=== PATIENT | male | born 1980 | race Two or more races ===

== ENCOUNTER 2023-09-07 10:54 | Inpatient (IN) | payer OTHER ==
[~2023-09-07] VITALS: Ht 167.6 cm; Wt 108.4 kg
[2023-09-07 11:49] LABS: BASOPHILS % (AUTO) 0.8 % (0.0-2.0); EOSINOPHILS % (AUTO) 0.5 % (0.0-6.0); HEMATOCRIT 43 % (39-51); LYMPHOCYTES # (AUTO) 1.7 K/uL (0.8-4.8); LYMPHOCYTES % (AUTO) 28.3 % (20.0-44.0); MEAN CORPUSCULAR HEMOGLOBIN 27 PG (26.0-33.0); MEAN CORPUSCULAR HGB CONC 32 g/dl (31.0-36.0); MEAN CORPUSCULAR VOLUME 84 fL (80-96); MONOCYTES # (AUTO) 0.4 K/uL (0.1-1.30); MONOCYTES % (AUTO) 5.7 % (2.0-12.0); NEUTROPHILS % (AUTO) 64.7 % (43.0-81.0); PLATELET COUNT (AUTO) 310 K/uL (150-450); RED BLOOD CELL COUNT(AUTO) 5.19 MIL/uL (4.5-6.0); RED CELL DISTRIBUTION WIDTH 17.4 % (11.5-15.0); WHITE BLOOD COUNT (AUTO) 6.1 K/uL (4.3-11.0)
[2023-09-07 11:51] LABS: APPEARANCE,URINE Clear (CLEAR); BILIRUBIN,URINE Negative (NEGATIVE); BLOOD, URINE Trace-intact Ery/uL (NEGATIVE); COLOR,URINE YELLOW (YELLOW); KETONES,URINE Negative (NEGATIVE); LEUKOCYTE ESTERASE ,URINE Negative (NEGATIVE); NITRITE, URINE Negative (NEGATIVE); PROTEIN,URINE 100 mg/dl (NEGATIVE); UGLUCOSE Negative (NEGATIVE); UROBILINOGEN,URINE 0.2 EU/dL (0.2)
[2023-09-07 11:57] LABS: CARBON DIOXIDE 23 mmol/L (21-32); CHLORIDE 103 mmol/L (98-107); CREATININE 0.9 mg/dL (0.6-1.3); GLUCOSE 106 mg/dL (74-106); POTASSIUM 3.6 mmol/L (3.5-5.1); SODIUM SERUM 138 mmol/L (136-145); UREA NITROGEN, BLOOD 4 mg/dL (7-18)
[2023-09-07 12:03] LABS: ACETAMINOPHEN <10 ug/ml (10-30); ALANINE AMINOTRANSFERASE 119 U/L (12-78); ALBUMIN 3.7 g/dL (3.4-5.0); ALCOHOL, BLOOD 246 mg/dL (0-10); ALKALINE PHOSPHATASE 181 U/L (46-116); ASPARTATE AMINOTRANSFERASE 71 U/L (15-37); BILIRUBIN,DIRECT 0.1 mg/dL (0.0-0.2); BILIRUBIN,TOTAL 0.4 mg/dL (0.2-1.0); CALCIUM, SERUM 8.2 mg/dL (8.5-10.1); SALICYLATE 0.5 mg/dL (2.8-20.0); TOTAL PROTEIN, SERUM 7.8 g/dL (6.4-8.2)
[2023-09-07 12:05] LABS: ADD URINE CULTURE NO; AMPHETAMINE, URINE NEGATIVE (NEGATIVE); BACTERIA,URINE Few /HPF (None Seen); BARBITURATE, URINE NEGATIVE (NEGATIVE); BENZODIAZEPINE, URINE NEGATIVE (NEGATIVE); CANNABINOID, URINE NEGATIVE (NEGATIVE); COCCAINE, URINE NEGATIVE (NEGATIVE); OPIATE, URINE NEGATIVE (NEGATIVE); PHENCYCLIDINE SCREEN,URINE NEGATIVE (NEGATIVE); RBC,URINE 0-2 /HPF (0-2); SQUAMOUS EPITHELIAL CELL,UR Few /HPF (None Seen); WBC,URINE 0-2 /HPF (0-3)
[2023-09-07] MEDS ORDERED: ONDANSETRON 4 MG TAB.RAPDIS ONE ×2 (13:40→13:55)
[2023-09-07] MEDS: ONDANSETRON 4 MG TAB.RAPDIS SL ONE ×3 (13:54→15:32)
[2023-09-07] MEDS: LORAZEPAM INJ 2 MG/ML VIAL IV ONE ×2 (15:00→18:39)
[2023-09-07] MEDS ORDERED: KETOROLAC TROMETHAMINE 15 MG/ML VIAL IM ONE (15:00)
[2023-09-07] MEDS ORDERED: FAMOTIDINE (20 MG) 20 MG TABLET PO ONE (15:00)
[2023-09-07] MEDS: IV NS 0.9% 1,000 ML BAG IV ONE (15:00)
[2023-09-07] MEDS: PANTOPRAZOLE 40 MG VIAL IV ONE (15:03)
[2023-09-07] MEDS: METOCLOPRAMIDE HCL 10 MG/2 ML VIAL IV ONE (15:05)
[2023-09-07] MEDS: FAMOTIDINE/PF INJ 20 MG/2 ML VIAL IV ONE (15:06)
[2023-09-07] MEDS ORDERED: LORAZEPAM INJ 2 MG/ML VIAL IV PRN (18:00)
[2023-09-07] MEDS ORDERED: GABA300C PO (18:26)
[2023-09-07] MEDS ORDERED: DULO60CA64 PO (18:26)
[2023-09-07] MEDS ORDERED: TRAZ-252 PO (18:26)
[2023-09-07] MEDS ORDERED: FAMO20TA8 PO (18:26)
[2023-09-07 19:42] VITALS: BP 180/85; TEMP 98.1; O2SAT 95
[2023-09-07 20:00] VITALS: BP 180/85; TEMP 98.1; O2SAT 95
[2023-09-07] MEDS ORDERED: ACETAMINOPHEN 325 MG TABLET PO PRN (20:00)
[2023-09-07] MEDS ORDERED: Z GUARD REMEDY 4 OZ OINT TP PRN (20:00)
[2023-09-08] VITALS: BP 156/95; TEMP 97.8; O2SAT 100; O2SAT 97
[2023-09-08] MEDS: IV LR 1000 ML 1,000 ML IV PRN (01:10)
[2023-09-08 04:00] VITALS: BP 149/105; TEMP 98.1; O2SAT 98
[2023-09-08] MEDS: ONDANSETRON HCL/PF 4 MG/2 ML VIAL IVP PRN (04:25)
[2023-09-08] MEDS: LORAZEPAM 1 MG TABLET PO PRN ×2 (05:05→12:45)
[2023-09-08 07:37] LABS: BASOPHILS # (AUTO) 0.1 K/uL (0.0-0.2); BASOPHILS % (AUTO) 1.4 % (0.0-2.0); EOSINOPHILS # (AUTO) 0.1 K/uL (0.0-0.7); EOSINOPHILS % (AUTO) 2.2 % (0.0-6.0); HEMATOCRIT 41 % (39-51); HEMOGLOBIN 13.7 g/dL (13.5-17.5); LYMPHOCYTES % (AUTO) 21.5 % (20.0-44.0); MEAN CORPUSCULAR HEMOGLOBIN 28 PG (26.0-33.0); MEAN CORPUSCULAR HGB CONC 34 g/dl (31.0-36.0); MEAN CORPUSCULAR VOLUME 84 fL (80-96); MONOCYTES # (AUTO) 0.4 K/uL (0.1-1.30); MONOCYTES % (AUTO) 9.3 % (2.0-12.0); NEUTROPHILS % (AUTO) 65.6 % (43.0-81.0); PLATELET COUNT (AUTO) 275 K/uL (150-450); RED BLOOD CELL COUNT(AUTO) 4.87 MIL/uL (4.5-6.0); RED CELL DISTRIBUTION WIDTH 17.1 % (11.5-15.0); WHITE BLOOD COUNT (AUTO) 4.6 K/uL (4.3-11.0)
[2023-09-08 08:00] VITALS: BP 152/104; TEMP 98.1; O2SAT 99
[2023-09-08] MEDS: PANTOPRAZOLE 40 MG TABLET.DR PO SCH (08:15)
[2023-09-08] MEDS: Thiamine 100 MG in IV D5W 50 ML IV ONE (08:15)
[2023-09-08 08:24] LABS: ALBUMIN 3.4 g/dL (3.4-5.0); BILIRUBIN,TOTAL 0.8 mg/dL (0.2-1.0); CALCIUM, SERUM 8.4 mg/dL (8.5-10.1); CREATININE 0.7 mg/dL (0.6-1.3); PHOSPHORUS 3.7 mg/dL (2.5-4.9); POTASSIUM 3.3 mmol/L (3.5-5.1); TOTAL PROTEIN, SERUM 7.5 g/dL (6.4-8.2)
[2023-09-08] MEDS: POTASSIUM CHLORIDE 20 MEQ TAB.PRT.SR PO SCH (10:40)
[2023-09-08] MEDS: MULTIVITAMINS,THERAGRAN 1 UDTAB TABLET PO SCH (10:40)
[2023-09-08 12:00] VITALS: BP 133/73; TEMP 98.6; O2SAT 96
[2023-09-08] MEDS ORDERED: LORAZEPAM 1 MG TABLET PO PRN (12:30)
[2023-09-08 16:00] VITALS: BP 145/95; TEMP 97.7; O2SAT 96
[2023-09-08] MEDS: LORAZEPAM INJ 2 MG/ML VIAL IV ONE (16:56)
[2023-09-08] MEDS ORDERED: LORAZEPAM INJ 2 MG/ML VIAL IV PRN (17:00)
[2023-09-08 20:00] VITALS: BP 144/93; TEMP 97.7; O2SAT 96
[2023-09-08] MEDS: LORAZEPAM INJ 2 MG/ML VIAL IV PRN (20:51)
[2023-09-08] MEDS: POTASSIUM CHLORIDE 20 MEQ TAB.PRT.SR PO ONE (23:43)
[2023-09-09] VITALS: BP 118/76; TEMP 98.6; O2SAT 96
[2023-09-09 04:00] VITALS: BP 129/90; TEMP 97.9; O2SAT 96
[2023-09-09 08:00] VITALS: BP 109/70; TEMP 98.7; O2SAT 94
[2023-09-09 08:17] LABS: CREATININE 0.7 mg/dL (0.6-1.3); POTASSIUM 3.5 mmol/L (3.5-5.1)
[2023-09-09] MEDS: THIAMINE HCL 100 MG TABLET PO SCH (08:20)
[2023-09-09] MEDS: LORAZEPAM INJ 2 MG/ML VIAL IM ONE (11:12)
[2023-09-09 16:00] VITALS: BP 115/77; TEMP 98.6; O2SAT 95
[2023-09-09] MEDS: HALOPERIDOL LACTATE INJ 5 MG/ML VIAL IM ONE (17:44)
[2023-09-09] MEDS: CHLORDIAZEPOXIDE HCL 25 MG CAPSULE PO SCH (17:44)
[2023-09-09 21:05] VITALS: BP 143/93; TEMP 98.4; O2SAT 97
[2023-09-10 00:35] VITALS: BP 134/87; TEMP 98.2; O2SAT 96
[2023-09-10 04:34] VITALS: BP 130/89; TEMP 98.4; O2SAT 92
[2023-09-10 07:06] LABS: BASOPHILS % (AUTO) 0.8 % (0.0-2.0); EOSINOPHILS # (AUTO) 0.3 K/uL (0.0-0.7); EOSINOPHILS % (AUTO) 5.5 % (0.0-6.0); HEMATOCRIT 42 % (39-51); HEMOGLOBIN 13.9 g/dL (13.5-17.5); LYMPHOCYTES # (AUTO) 1.4 K/uL (0.8-4.8); LYMPHOCYTES % (AUTO) 28.1 % (20.0-44.0); MEAN CORPUSCULAR HEMOGLOBIN 28 PG (26.0-33.0); MEAN CORPUSCULAR HGB CONC 33 g/dl (31.0-36.0); MEAN CORPUSCULAR VOLUME 84 fL (80-96); MONOCYTES # (AUTO) 0.4 K/uL (0.1-1.30); MONOCYTES % (AUTO) 7.5 % (2.0-12.0); NEUTROPHILS % (AUTO) 58.1 % (43.0-81.0); PLATELET COUNT (AUTO) 257 K/uL (150-450); RED BLOOD CELL COUNT(AUTO) 5.02 MIL/uL (4.5-6.0); RED CELL DISTRIBUTION WIDTH 17.2 % (11.5-15.0); WHITE BLOOD COUNT (AUTO) 5.1 K/uL (4.3-11.0)
[2023-09-10 07:29] LABS: CREATININE 0.8 mg/dL (0.6-1.3); MAGNESIUM 2.1 mg/dL (1.8-2.4); PHOSPHORUS 3.7 mg/dL (2.5-4.9); POTASSIUM 3.4 mmol/L (3.5-5.1)
[2023-09-10 08:00] VITALS: BP 126/89; TEMP 99; O2SAT 98
[2023-09-10] MEDS: POTASSIUM CHLORIDE 20 MEQ TAB.PRT.SR PO SCH (10:08)
[2023-09-10 12:00] VITALS: BP_SYST 104; BP_SYST 130; BP_DIAS 84; BP_DIAS 85; TEMP 98.2; TEMP 99.3; O2SAT 94; O2SAT 96
[2023-09-10 16:00] VITALS: BP 138/86; TEMP 98.2; O2SAT 98
[2023-09-10 20:00] VITALS: BP 137/88; TEMP 97.3; O2SAT 96
[2023-09-11] VITALS: BP 130/104; TEMP 98.1; O2SAT 96
[2023-09-11 08:00] VITALS: BP 138/99; TEMP 98.1; O2SAT 98
[2023-09-11 11:20] LABS: BASOPHILS % (AUTO) 0.8 % (0.0-2.0); EOSINOPHILS # (AUTO) 0.3 K/uL (0.0-0.7); EOSINOPHILS % (AUTO) 5.1 % (0.0-6.0); HEMATOCRIT 45 % (39-51); HEMOGLOBIN 14.8 g/dL (13.5-17.5); LYMPHOCYTES # (AUTO) 1.5 K/uL (0.8-4.8); LYMPHOCYTES % (AUTO) 26.1 % (20.0-44.0); MEAN CORPUSCULAR HEMOGLOBIN 28 PG (26.0-33.0); MEAN CORPUSCULAR HGB CONC 33 g/dl (31.0-36.0); MEAN CORPUSCULAR VOLUME 84 fL (80-96); MONOCYTES # (AUTO) 0.5 K/uL (0.1-1.30); MONOCYTES % (AUTO) 8.3 % (2.0-12.0); NEUTROPHILS # (AUTO) 3.5 K/uL (1.8-8.9); NEUTROPHILS % (AUTO) 59.7 % (43.0-81.0); PLATELET COUNT (AUTO) 252 K/uL (150-450); RED BLOOD CELL COUNT(AUTO) 5.34 MIL/uL (4.5-6.0); RED CELL DISTRIBUTION WIDTH 16.7 % (11.5-15.0); WHITE BLOOD COUNT (AUTO) 5.8 K/uL (4.3-11.0)
[2023-09-11] MEDS ORDERED: MULT-24 PO (11:31)
[2023-09-11] MEDS ORDERED: Thiamine HCL PO (11:31)
[2023-09-11 11:36] LABS: CALCIUM, SERUM 9.2 mg/dL (8.5-10.1); CREATININE 0.6 mg/dL (0.6-1.3); MAGNESIUM 2.4 mg/dL (1.8-2.4); PHOSPHORUS 3.3 mg/dL (2.5-4.9); POTASSIUM 3.6 mmol/L (3.5-5.1)
[2023-09-11 12:00] VITALS: BP 114/69; TEMP 98.8; O2SAT 96
== END 2023-09-11 16:45 | disposition home or self-care (01) | DRG 48 ==
LOC: ER 11:09 → TELE 18:35 → MED 09-09 10:26 → TELE 09-09 10:58
PROVIDERS: ADMIT Nurse Practitioner Acute Care; ATTEND Internal Medicine
DX: G62.1 Alcoholic polyneuropathy (principal); R45.851 Suicidal ideations; K21.9 Gastro-esophageal reflux disease without esophagitis; F10.239 Alcohol dependence with withdrawal, unspecified; Z59.00 Homelessness unspecified; Y90.8 Blood alcohol level of 240 mg/100 ml or more; Z20.822 Contact with and (suspected) exposure to COVID-19; Z87.891 Personal history of nicotine dependence; Z79.899 Other long term (current) drug therapy; Z91.148 Patient's other noncompliance with medication regimen for other reason; F15.10 Other stimulant abuse, uncomplicated; F10.259 Alcohol dependence with alcohol-induced psychotic disorder, unspecified; F41.9 Anxiety disorder, unspecified
CPT/HCPCS: 36415; 71045-TC; 80048-TC; 80053-TC; 80061-TC; 80076-TC; 81001; 83735-TC; 84100-TC; 84484-TC; 85025-TC; 87081-TC; 97112-TC; 97116-TC; 97530-TC; 98960; A4223; G0378; G0480; J1630; J2060; J2405; J2470; J2765; J3411; J3490; J7030; J7060; J7120; Q0162